=== PATIENT | female | born 1975 | race Caucasian/White ===

== ENCOUNTER 2022-12-25 00:03 | Emergency (ER) | payer BC ==
--- OUTSIDE RECORDS SUMMARY | 2022-12-25 00:06 | XMS REPORT | Continuity of Care Document ---
:1975 Author Organization [facility] t Address [address] [place] [address] Care Team Providers Name Role Phone Brennon AMAYA, Trevor Owens Primary Care Physician [phone] Problems This patient has no known problems. Allergies, Adverse Reactions, Alerts This patient has no known allergies or adverse reactions. Social History Social Habit Start Date Stop Date Quantity Comments Source Gender identity [facility] Sexual orientation Method [facility] Sex Assigned At [birth year] [facility] 00:00:00 00:00:00 Smoking Status Start Date Stop Date Source Tobacco smoking consumption unknown [facility] Medications Ordered Filled Start Stop Current Ordering Indication Dosage Frequency Signature Comments Components Source Medication Medication Date Date Medication? Clinician (SIG) Name Name hydrALAZINE Yes hydralazin Methodi (APRESOLINE 02-[address] ) 50 MG 12:34: tablet Hospita tablet 01 l levothyroxi Yes levothyrox Method[facility] ne [address] (SYNTHROID, 12:34: tablet Hosp flora LEVOTHROID) 01 l 88 MCG tablet liothyronin Yes liothyroni Methodi e (CYTOMEL) 02-[address] 5 MCG 12:34: tablet Hospita tablet 01 l lisinopril Yes lisinopril M ethodi (PRINIVIL,Z 8-[address] ESTRIL) 20 12:34: tablet Hospi ta MG tablet 01 l OMEPRAZOLE Yes 40mg 40 mg. Metho di ORAL 8-17 st 12:34: Hospita 01 l aspirin 325 Yes 81 mg 1 po Methodi MG tablet 8-[address] 12:34: Hospita 01 l atorvastati Yes atorvastat Methodi n (LIPITOR) 02-[address] 10 MG 12:34: tablet Hospita tablet 01 l carvedilol Yes 12.5mg 12.5 mg. M ethodi (COREG) 8 st 12.5 MG 12:34: Hospita tablet 01 l citalopram Yes citalopram M ethodi (CeleXA) 10 02-[address] MG tablet 12:34: tablet Hospit a 01 l Procedures This patient has no known procedures. Plan of Care Planned Activity Planned Date Details Comments Source Future Scheduled 2022-12-25 Screening for [facility] Test 00:05:37 malignant neoplasm of colon (procedure) [code = 014080384] Future Scheduled 2022-12-25 Screening for [facility] Test 00:05:37 malignant neoplasm of colon (procedure) [code = 432670769] Future Scheduled 2022-12-25 Screening for [facility] Test 00:05:37 malignant neoplasm of colon (procedure) [code = 402957634] Future Scheduled 2022-12-25 [facility] 00:05:37 (#1) [code = COVID-19 VACCINE (#1)] Future Scheduled 2022-12-25 Screening for [facility] Test 00:05:37 malignant neoplasm of cervix (procedure) [code = 418845394] Future Scheduled 2022-12-25 BREAST CANCER [facility] Test 00:05:37 SCREENING [code = BREAST CANCER SCREENING] Future Scheduled 2022-12-25 Screening for [facility] Test 00:05:37 malignant neoplasm of colon (procedure) [code = 092009928] Future Scheduled 2022-12-25 Screening for [facility] Test 00:05:37 malignant neoplasm of colon (procedure) [code = 177942604] Future Scheduled 2022-12-25 INFLUENZA VACCINE [facility] Test 00:05:37 [code = INFLUENZA VACCINE] Results This patient has no known results.
--- NOTE | 2022-12-25 01:39 | ER ---
Nurse's Notes [facility] Name: Wendy Albright Age: 47 yrs Sex: Female : 1975 Arrival Date: 12/25/2022 Time: 00:03 Bed 11 Private MD: Diagnosis: Comminuted minimally displaced close fracture right radius and ulna Presentation: 12/25 00:17 Chief complaint: Patient states: right wrist pain of 9,onset 1 hours ago, S/P fall, pf1 tripped while getting out of bed, tried to catch self and landed onto right wrist on the floor. Patient denies any head injury. Coronavirus screen: Vaccine status: Patient reports being unvaccinated. Client denies travel out of the [place] in the last 14 days. At this time, the client does not indicate any symptoms associated with coronavirus-19. Ebola Screen: Patient negative for fever greater than or equal to 101.5 degrees Fahrenheit, and additional compatible Ebola Virus Disease symptoms. Initial Sepsis Screen: Does the patient meet any 2 criteria? No. Patient's initial sepsis screen is negative. Does the patient have a suspected source of infection? No. Patient's initial sepsis screen is negative. Risk Assessment: Do you want to hurt yourself or someone else? Patient reports no desire to harm self or others. 00:17 Method Of Arrival: Ambulatory pf1 00:17 Acuity: JENNIFER 3 pf1 Historical: - Allergies: 00:19 No Known Allergies; pf1 - PMHx: 00:19 Hypertensive disorder; Hypothyroidism; Hypercholesterolemia; depression; neuropathy; pf1 GERD; overactive bladder; - PSHx: 00:19 aortic valve repair; aortic repair; pf1 - Immunization history:: Adult Immunizations up to date, Client reports having NOT received the Covid vaccine. Last tetanus immunization: < 10 years ago Flu vaccine is not up to date. - Social history:: Smoking status: Patient denies any tobacco usage or history of. Patient uses alcohol, occasionally. Patient/guardian denies using street drugs. Screenin:20 [facility] ED Fall Risk Assessment (Adult) History of falling in the last 3 months, pf1 including since admission Yes- single mechanical fall (1 pt) Confusion or Disorientation No (0 pts) Intoxicated or Sedated No (0 pts) Impaired Gait No (0 pts) Mobility Assist Device Used No (0 pt) Altered Elimination No (0 pt) Score/Fall Risk Level 0 - 2 = Low Risk Oriented to surroundings, Maintained a safe environment, Educated pt \T\ family on fall prevention, incl call for assistance when getting out of bed, Assessed \T\ reinforced patient's understanding of fall precautions, Provided non-skid footwear, Hourly rounding (assess needs \T\ fall precautionary measures) done, Used ambulatory aids as needed (educated on \T\ assisted with), Used gait belt as appropriate. 00:20 Abuse screen: Denies threats or abuse. Nutritional screening: No deficits noted. pf1 Tuberculosis screening: No symptoms or risk factors identified. Assessment: 00:20 General: Appears in no apparent distress. uncomfortable, obese, well groomed, well pf1 developed, Behavior is calm, cooperative, appropriate for age, quiet. 00:20 Pain: Complains of pain in right arm and right wrist. Neuro: Level of Consciousness is pf1 awake, alert, obeys commands, Oriented to person, place, time, situation. Cardiovascular: No deficits noted. Capillary refill < 3 seconds Patient's skin is warm and dry. Respiratory: No deficits noted. Airway is patent Respiratory effort is even, unlabored, Respiratory pattern is regular, symmetrical. GI: No deficits noted. No signs and/or symptoms were reported involving the gastrointestinal system. : No deficits noted. No signs and/or symptoms were reported regarding the genitourinary system. EENT: No deficits noted. No signs and/or symptoms were reported regarding the EENT system. Derm: No deficits noted. No signs and/or symptoms reported regarding the dermatologic system. Musculoskeletal: Reports pain in right wrist and right arm. 01:20 Reassessment: Patient appears in no apparent distress at this time. Patient and/or pf1 family updated on plan of care and expected duration. Pain level reassessed. Patient is alert, oriented x 3, equal unlabored respirations, skin warm/dry/pink. Vital Signs: 00:17 BP 132 / 77; Pulse 63; Resp 18; Temp 98.2; Pulse Ox 97% on R/A; Weight 136.08 kg; pf1 Height 5 ft. 7 in. ; Pain 9/10; 01:20 BP 130 / 68; Pulse 69; Resp 16; Pulse Ox 99% on R/A; Pain 4/10; pf1 00:17 Body Mass Index 46.99 (136.08 kg, 170.18 cm) pf1 00:17 Pain Scale: Adult pf1 01:20 Pain Scale: Adult pf1 ED Course: 00:06 Patient arrived in ED. ja2 00:11 Randy Iraheta MD is Attending Physician. kdr 00:19 Triage completed. pf1 00:20 Patient has correct armband on for positive identification. Bed in low position. Call pf1 light in reach. 00:20 Arm band placed on left wrist. pf1 00:30 No provider procedures requiring assistance completed. pf1 00:30 Patient did not have IV access during this emergency room visit. pf1 01:25 Wrist Right 3 View XRAY In Process Unspecified. EDMS 01:40 Orthoglass splint: Sugar tong splint applied on right arm. Sling \T\ swathe to right arm. pf1 Administered Medications: No medications were administered Medication: 00:20 VIS not applicable for this client. pf1 Outcome: 01:39 Discharge ordered by . kdr 02:00 Discharged to home ambulatory, with family. pf1 02:00 Condition: improved 02:00 Discharge instructions given to patient, Instructed on discharge instructions, follow up and referral plans. Demonstrated understanding of instructions, follow-up care. 02:00 Patient left the ED. pf1 Signatures: Dispatcher [employer] EDMS Randy Iraheta MD MD kdr Alexander, Jessica ja2 Finley, Pamala, RN RN pf1 Corrections: (The following items were deleted from the chart) 00:27 00:19 Allergies: No Known Allergies; pf1 pf1 : 00:19 PMHx: Hypertensive disorder; pf1 pf1 : 00:19 PMHx: Hypothyroidism; pf1 pf1 : 00:19 PMHx: neuropathy; pf1 pf1 00:19 PMHx: Cerebrovascular accident; pf1 pf1 00:19 PMHx: overactive bladder; pf1 pf1 00:19 PMHx: depression; pf1 pf1 : 00:19 PMHx: Hypercholesterolemia; pf1 pf1 00:19 PMHx: GERD; pf1 pf1 : 00:19 PSHx: aortic disection repair; pf1 pf1 00:27 00:19 PSHx: aortic valve repair; pf1 pf1 07:55 03:03 Patient left the ED. pf1 pf1
--- NOTE | 2022-12-25 01:39 | EDPHYS ---
Physician Documentation [facility] Name: Wendy Albirght Age: 47 yrs Sex: Female : 1975 Arrival Date: 12/25/2022 Time: 00:03 Bed 11 Private MD: ED Physician Randy Iraheta HPI: 12/25 03:14 This 47 yrs old Female presents to ER via Ambulatory with complaints of Fall Injury, kdr Wrist Injury. 03:14 Patient states that she fell prior to arrival. She states she fell on her right side kdr with her wrist flexed and hit the ground. She now has pain in the distal right radius area patient has had a prior stroke and has minimal movement of the lower forearm on that side. Patient has no other injuries and no other concerns at this time. Onset: The symptoms/episode began/occurred just prior to arrival. Severity of symptoms: At their worst the symptoms were mild moderate just prior to arrival, in the emergency department the symptoms are unchanged. The patient has not experienced similar symptoms in the past. The patient has not recently seen a physician. Historical: - Allergies: 00:19 No Known Allergies; pf1 - PMHx: 00:19 Hypertensive disorder; Hypothyroidism; Hypercholesterolemia; depression; neuropathy; pf1 GERD; overactive bladder; - PSHx: 00:19 aortic valve repair; aortic repair; pf1 - Immunization history:: Adult Immunizations up to date, Client reports having NOT received the Covid vaccine. Last tetanus immunization: < 10 years ago Flu vaccine is not up to date. - Social history:: Smoking status: Patient denies any tobacco usage or history of. Patient uses alcohol, occasionally. Patient/guardian denies using street drugs. ROS: 03:14 Constitutional: Negative for fever, chills, and weight loss, Eyes: Negative for injury, kdr pain, redness, and discharge, Neck: Negative for injury, pain, and swelling, Cardiovascular: Negative for chest pain, palpitations, and edema, Respiratory: Negative for shortness of breath, cough, wheezing, and pleuritic chest pain, Abdomen/GI: Negative for abdominal pain, nausea, vomiting, diarrhea, and constipation, Back: Negative for injury and pain, : Negative for injury, bleeding, discharge, and swelling, Skin: Negative for injury, rash, and discoloration, Neuro: Negative for headache, weakness, numbness, tingling, and seizure activity. Psych: Negative for depression, anxiety, suicide ideation, homicidal ideation, and hallucinations, Allergy/Immunology: Negative for hives, rash, and allergies, Endocrine: Negative for neck swelling, polydipsia, polyuria, polyphagia, and marked weight changes, Hematologic/Lymphatic: Negative for swollen nodes, abnormal bleeding, and unusual bruising. 03:14 MS/extremity: Positive for injury or acute deformity, decreased range of motion, Negative for Exam: 03:14 Constitutional: This is a well developed, well nourished patient who is awake, alert, kdr and in no acute distress. Head/Face: Normocephalic, atraumatic. 03:14 Musculoskeletal/extremity: Extremities: grossly normal except: noted in the right wrist: decreased ROM, pain. Vital Signs: 00:17 BP 132 / 77; Pulse 63; Resp 18; Temp 98.2; Pulse Ox 97% on R/A; Weight 136.08 kg; pf1 Height 5 ft. 7 in. ; Pain 9/10; 01:20 BP 130 / 68; Pulse 69; Resp 16; Pulse Ox 99% on R/A; Pain 4/10; pf1 00:17 Body Mass Index 46.99 (136.08 kg, 170.18 cm) pf1 00:17 Pain Scale: Adult pf1 01:20 Pain Scale: Adult pf1 MDM: 01:39 Patient medically screened. kdr 03:17 Data reviewed: vital signs, nurses notes, radiologic studies. kdr 12/25 00:53 Order name: Wrist Right 3 View XRAY kdr 12/25 01:35 Order name: Sugar Tong Forearm Splint; Complete Time: 02:06 kdr Administered Medications: No medications were administered Disposition Summary: 12/25/22 01:39 Discharge Ordered Location: Home kdr Problem: new kdr Symptoms: have improved kdr Condition: Fair kdr Diagnosis - Comminuted minimally displaced close fracture right radius and ulna kdr Followup: kdr - With: Private Physician - When: 2 - 3 days - Reason: If symptoms return, Further diagnostic work-up, Recheck today's complaints, Continuance of care, Re-evaluation by your physician Discharge Instructions: - Discharge Summary Sheet kdr - Radial Fracture kdr - Ulnar Fracture kdr Forms: - Medication Reconciliation Form kdr - Thank You Letter kdr - [email or web address] kdr Signatures: Dispatcher [employer] Randy Warren MD MD kdr Finley, Pamala, RN RN pf1 Corrections: (The following items were deleted from the chart) 00: 00:19 Allergies: No Known Allergies; pf1 pf1 : 00:19 PMHx: Hypertensive disorder; pf1 pf1 : 00:19 PMHx: Hypothyroidism; pf1 pf1 00:19 PMHx: neuropathy; pf1 pf1 : 00:19 PMHx: Cerebrovascular accident; pf1 pf1 : 00:19 PMHx: overactive bladder; pf1 pf1 : 00:19 PMHx: depression; pf1 pf1 : 00:19 PMHx: Hypercholesterolemia; pf1 pf1 : 00:19 PMHx: GERD; pf1 pf1 : 00:19 PSHx: aortic disection repair; pf1 pf1 : 00:19 PSHx: aortic valve repair; pf1 pf1
[2022-12-25 03:07] VITALS: BP 132/77; TEMP 98.2; O2SAT 97
--- NOTE | 2022-12-26 19:30 | RAD REPORT ---
EXAM DESCRIPTION: RAD - Wrist Right 3 View - 12/25/2022 1:23 am Wrist Right 3 View CLINICAL HISTORY: Deformity;Pain Wrist Right 3 View TECHNIQUE: Three views of the right wrist are submitted. COMPARISON: None available for comparison FINDINGS: Comminuted fracture of the distal radius with mild dorsal displacement of distal fragments . Fracture of the distal ulna and avulsion of the ulnar styloid process. Carpal bones are intact. IMPRESSION: Fractures of the distal radius and ulna with avulsion of the ulnar styloid process. Electronically signed by: Julio Yun MD 12/25/2022 1:52 AM CDT Due to temporary technical issues with the PACS/Fluency reporting system, reports are being signed by the in house radiologists without review as a courtesy to insure prompt reporting. The interpreting radiologist is fully responsible for the content of the report.
== END 2022-12-25 03:03 | disposition home or self-care (01) ==
LOC: ER 00:03
PROC: 2W3CX1Z Immobilization of Right Lower Arm using Splint (ICD-10-PCS; principal; 2022-12-25)
DX: S52.251A Displaced comminuted fracture of shaft of ulna, right arm, initial encounter for closed fracture (principal); S52.501A Unspecified fracture of the lower end of right radius, initial encounter for closed fracture; W06.XXXA Fall from bed, initial encounter
CPT/HCPCS: 99283

== ENCOUNTER 2023-03-28 09:10 | Emergency (ER) | payer BC ==
--- OUTSIDE RECORDS SUMMARY | 2023-03-28 09:14 | XMS REPORT | Continuity of Care Document ---
:1975 Author Organization [facility] t Address [address] [place] [address] Care Team Providers Name Role Phone Brennon AMAYA, Trevor Owens Primary Care Physician [phone]- [phone] Problems This patient has no known problems. Allergies, Adverse Reactions, Alerts This patient has no known allergies or adverse reactions. Social History Social Habit Start Date Stop Date Quantity Comments Source Gender identity [facility] Sexual orientation Method [facility] Sex Assigned At [birth year] Met [facility] 00:00:00 00:00:00 Smoking Status Start Date Stop Date Source Tobacco smoking consumption unknown [facility] Medications Ordered Filled Start Stop Current Ordering Indication Dosage Frequency Signature Comments Components Source Medication Medication Date Date Medication? Clinician (SIG) Name Name hydrALAZINE Yes hydralazin [facility] (APRESOLINE -[address] ) 50 MG 12:34: tablet Hospita tablet 01 l levothyroxi Yes levothyrox Method[facility] ne 8-[address] (SYNTHROID, 12:34: tablet Hosp flora LEVOTHROID) 01 l 88 MCG tablet liothyronin Yes liothyroni Methodi e (CYTOMEL) 8-[address] 5 MCG 12:34: tablet Hospita tablet 01 l levothyroxi Yes levothyrox Methodi ne 8-[address] (SYNTHROID, 12:34: tablet Hosp flora LEVOTHROID) 01 l 88 MCG tablet liothyronin 2016-0 Yes liothyroni Methodi e (CYTOMEL) 02-[address] 5 MCG 12:34: tablet Hospita tablet 01 l lisinopril Yes lisinopril M ethodi (PRINIVIL,Z 8-[address] ESTRIL) 20 12:34: tablet Hospi ta MG tablet 01 l OMEPRAZOLE 0 Yes 40mg 40 mg. Metho di ORAL 02-01 st 12:34: Hospita 01 l lisinopril Yes lisinopril M ethodi (PRINIVIL,Z 8-[address] ESTRIL) 20 12:34: tablet Hospi ta MG tablet 01 l aspirin 325 Yes 81 mg 1 po Methodi MG tablet - qd st 12:34: Hospita 01 l atorvastati Yes atorvastat Methodi n (LIPITOR) [address] 10 MG 12:34: tablet Hospita tablet l carvedilol Yes 12.5mg 12.5 mg. M ethodi (COREG) 02-01 st 12.5 MG 12:34: Hospita tablet l citalopram 0 Yes citalopram M ethodi (CeleXA) 10 - [address] MG tablet 12:34: tablet Hospit a 01 l hydrALAZINE Yes hydralazin Methodi (APRESOLINE 02-[address] ) 50 MG 12:34: tablet Hospita tablet l OMEPRAZOLE 0 Yes 40mg 40 mg. Metho di ORAL 02-01 st 12:34: Hospita 01 l aspirin 325 2015-0 Yes 81 mg 1 po Methodi MG tablet -[address] 12:34: Hospita 01 l atorvastati 0 Yes atorvastat Methodi n (LIPITOR) 8- in [address] 10 MG 12:34: tablet Hospita tablet 01 l carvedilol 2015-0 Yes 12.5mg 12.5 mg. M ethodi (COREG) 817 st 12.5 MG 12:34: Hospita tablet 01 l citalopram 2015-0 Yes citalopram M ethodi (CeleXA) 10 8-[address] MG tablet 12:34: tablet Hospit a 01 l Procedures This patient has no known procedures. Plan of Care Planned Activity Planned Date Details Comments Source Future Scheduled 2023-03-28 Screening for [facility] Test 09:14:06 malignant neoplasm of colon (procedure) [code = 233323491] Future Scheduled 2023-03-28 Screening for [facility] Test 09:14:06 malignant neoplasm of colon (procedure) [code = 288374886] Future Scheduled 2023-03-28 Screening for [facility] Test 09:14:06 malignant neoplasm of colon (procedure) [code = 560422500] Future Scheduled 2023-03-28 [facility] 09:14:06 (#1) [code = COVID-19 VACCINE (#1)] Future Scheduled 2023-03-28 Screening for [facility] Test 09:14:06 malignant neoplasm of cervix (procedure) [code = 669500199] Future Scheduled 2023-03-28 BREAST CANCER [facility] Test 09:14:06 SCREENING [code = BREAST CANCER SCREENING] Future Scheduled 2023-03-28 Screening for [facility] Test 09:14:06 malignant neoplasm of colon (procedure) [code = 182959973] Future Scheduled 2023-03-28 Screening for [facility] Test 09:14:06 malignant neoplasm of colon (procedure) [code = 611957695] Future Scheduled 2023-03-28 [facility] 09:14:06 (#1) [code = INFLUENZA VACCINE (#1)] Future Scheduled 2022-12-25 Screening for [facility] Test 00:05:37 malignant neoplasm of colon (procedure) [code = 148454129] Future Scheduled 2022-12-25 Screening for [facility] Test 00:05:37 malignant neoplasm of colon (procedure) [code = 733293331] Future Scheduled 2022-12-25 Screening for [facility] Test 00:05:37 malignant neoplasm of colon (procedure) [code = 385845916] Future Scheduled 2022-12-25 COVID-[address] [facility] Test 00:05:37 (#1) [code = COVID-19 VACCINE (#1)] Future Scheduled 2022-12-25 Screening for [facility] Test 00:05:37 malignant neoplasm of cervix (procedure) [code = 214244416] Future Scheduled 2022-12-25 BREAST CANCER [facility] Test 00:05:37 SCREENING [code = BREAST CANCER SCREENING] Future Scheduled 2022-12-25 Screening for [facility] Test 00:05:37 malignant neoplasm of colon (procedure) [code = 829810586] Future Scheduled 2022-12-25 Screening for [facility] Test 00:05:37 malignant neoplasm of colon (procedure) [code = 793621266] Future Scheduled 2022-12-25 [facility]ACCINE [facility] 00:05:37 [code = INFLUENZA VACCINE] Results This patient has no known results.
[2023-03-28 10:14] LABS: Potassium 2.8 mEq/L (3.5-5.1)
[2023-03-28] MEDS ORDERED: POTASSIUM 25 MEQ EFFERV TAB ONE (10:32)
[2023-03-28] MEDS ORDERED: KCL 20 MEQ/100 mL IVPB 100 ML IV ONE (10:33)
[2023-03-28] MEDS ORDERED: NA CHLORIDE 0.9% 500 ML ONE (10:49)
--- NOTE | 2023-03-28 12:20 | ER ---
Nurse's Notes [facility] Name: Wendy Alb[facility] Age: 47 yrs Sex: Female : 1975 Arrival Date: 03/28/2023 Time: 09:10 Bed 13 Private MD: Diagnosis: Hypokalemia Presentation: 03/28 09:20 Chief complaint: Patient states: Blood drawn yesterday shown K+ 2.8. Coronavirus ll1 screen: Client denies travel out of the [place] in the last 14 days. At this time, the client does not indicate any symptoms associated with coronavirus-19. Ebola Screen: Patient denies travel to an Ebola-affected area in the 21 days before illness onset. Initial Sepsis Screen: Does the patient meet any 2 criteria? No. Patient's initial sepsis screen is negative. Does the patient have a suspected source of infection? No. Patient's initial sepsis screen is negative. Risk Assessment: Do you want to hurt yourself or someone else? Patient reports no desire to harm self or others. Onset of symptoms was March 27, 2023. 09:20 Method Of Arrival: Ambulatory ll1 09:20 Acuity: JENNIFER 4 ll1 Historical: - Allergies: 09:14 No Known Drug Allergies; ll1 - PMHx: 09:14 Depression; GERD; Hypercholesterolemia; Hypertensive disorder; Hypothyroidism; ll1 neuropathy; overactive bladder; - PSHx: 09:14 Aortic Repair; aortic valve repair; ll1 - Immunization history:: Adult Immunizations up to date. - Social history:: Smoking status: Patient denies any tobacco usage or history of. Screenin:43 [facility] ED Fall Risk Assessment (Adult) History of falling in the last 3 months, db including since admission No falls in past 3 months (0 pts) Confusion or Disorientation No (0 pts) Intoxicated or Sedated No (0 pts) Impaired Gait No (0 pts) Mobility Assist Device Used No (0 pt) Altered Elimination No (0 pt) Score/Fall Risk Level 0 - 2 = Low Risk Oriented to surroundings, Maintained a safe environment. Abuse screen: Denies threats or abuse. Denies injuries from another. Nutritional screening: No deficits noted. Tuberculosis screening: No symptoms or risk factors identified. Assessment: 10:43 Reassessment: Patient appears in no apparent distress at this time. Patient and/or db family updated on plan of care and expected duration. Pain level reassessed. Patient is alert, oriented x 3, equal unlabored respirations, skin warm/dry/pink. General: Appears in no apparent distress. comfortable, Behavior is calm, cooperative. Pain: Denies pain. Neuro: Level of Consciousness is awake, alert, obeys commands, Oriented to person, place, time, situation. 12:43 Reassessment: Patient appears in no apparent distress at this time. Patient and/or db family updated on plan of care and expected duration. Pain level reassessed. Patient is alert, oriented x 3, equal unlabored respirations, skin warm/dry/pink. Vital Signs: 09:20 BP 114 / 52; Pulse 70; Resp 16; Temp 98.1; Pulse Ox 99% ; Weight 140.61 kg; Height 5 ll1 ft. 7 in. ; Pain 0/10; 09:47 BP 108 / 59; Pulse 62; Resp 16; Pulse Ox 98% on R/A; db 11:00 BP 114 / 52; Pulse 69; Resp 16; Pulse Ox 98% on R/A; db 12:00 BP 101 / 51; Pulse 65; Resp 16; Pulse Ox 100% on R/A; db 09:20 Body Mass Index 48.55 (140.61 kg, 170.18 cm) ll1 09:20 Pain Scale: Adult ll1 ED Course: 09:13 Patient arrived in ED. mr 09:14 Arm band placed on Patient placed in an exam room, on a stretcher. ll1 09:16 Lorraine Pulido PA-C is PHCP. sb4 09:16 Rah Sanchez DO is Attending Physician. sb4 09:16 Liliana Hernandez, RN is Primary Nurse. db 09:21 Triage completed. ll1 09:45 Missed attempt(s): 22 gauge in left antecubital area. Bleeding controlled, band aid db applied, catheter tip intact. 09:52 Inserted saline lock: 22 gauge in right antecubital area, using aseptic technique. db Blood collected. 10:43 Patient has correct armband on for positive identification. Bed in low position. Call db light in reach. Side rails up X 1. Client placed on continuous cardiac and pulse oximetry monitoring. NIBP monitoring applied. 12:35 Provided Education on: DISCHARGE. db 12:35 No provider procedures requiring assistance completed. IV discontinued, intact, db bleeding controlled, No redness/swelling at site. Administered Medications: 10:29 Drug: Potassium Chloride IV 20 mEq IV at calculated rate once; administer over 1-2 db hours Route: IV; Rate: calculated rate; Site: right antecubital; 12:40 Follow up: Response: No adverse reaction; IV Status: Completed infusion; IV Intake: db 100ml 10:29 Drug: Potassium PO Effervescent Tablet 50 mEq PO once; dissolve in 4 ounces of water or db juice Route: PO; 12:40 Follow up: Response: No adverse reaction db 10:37 Drug: NS 0.9% IV 500 ml IV at bolus once Route: IV; Rate: bolus; Site: right db antecubital; 12:40 Follow up: Response: No adverse reaction; IV Status: Completed infusion; IV Intake: db 500ml Medication: 10:43 VIS not applicable for this client. db Intake: 12:40 IV: 500ml; Total: 500ml. db 12:40 IV: 100ml; Total: 600ml. db Outcome: 12:20 Discharge ordered by . sb4 12:40 Discharged to home ambulatory, db 12:40 Condition: stable 12:40 Discharge instructions given to patient, Instructed on discharge instructions, follow up and referral plans. Prescriptions given X 1, 12:46 Patient left the ED. db Signatures: Sandra Decker, Harshad Patricia mr Noemí Meier, RN RN ll1 Liliana Hernandez, YAYA RN db Lorraine Pulido, PAFaustinoC PAEd sb4
--- NOTE | 2023-03-28 12:20 | EDPHYS ---
Physician Documentation [facility] Name: Wendy Albright Age: 47 yrs Sex: Female : 1975 Arrival Date: 03/28/2023 Time: 09:10 Bed 13 Private MD: ED Physician Rah Sanchez HPI: 03/28 09:38 This 47 yrs old Female presents to ER via Ambulatory with complaints of Abnormal Lab sb4 Results. 09:38 Patient states that she had routine labs drawn on Sunday. PCP called with results of sb4 low potassium and had her do a recollect to ensure it was accurate. They are recollected on Sunday and she was called with the result this morning. She was told her potassium is 2.8. She is on Lasix. She denies any history of hypokalemia. She denies any recent nausea or vomiting. She is asymptomatic. No chest pain, no muscle cramps, no fatigue, shortness of breath. Historical: - Allergies: 09:14 No Known Drug Allergies; ll1 - PMHx: 09:14 Depression; GERD; Hypercholesterolemia; Hypertensive disorder; Hypothyroidism; ll1 neuropathy; overactive bladder; - PSHx: 09:14 Aortic Repair; aortic valve repair; ll1 - Immunization history:: Adult Immunizations up to date. - Social history:: Smoking status: Patient denies any tobacco usage or history of. ROS: 09:38 Constitutional: Negative for fever, chills, and weight loss, sb4 09:38 All other systems are negative, Exam: 09:38 Constitutional: This is a well developed, well nourished patient who is awake, alert, sb4 and in no acute distress. Head/Face: Normocephalic, atraumatic. Eyes: Extra-ocular motions intact. Periorbital areas with no swelling, redness, or edema. ENT: Mucous membranes moist. Cardiovascular: Regular rate and rhythm with a normal S1 and S2. Respiratory: Lungs have equal breath sounds bilaterally, clear to auscultation and percussion. No rales, rhonchi or wheezes noted. No increased work of breathing, no retractions or nasal flaring. Abdomen/GI: Soft, non-tender, no distension. Skin: Warm, dry with normal turgor. Normal color with no rashes, no lesions, and no evidence of cellulitis. MS/ Extremity: Pulses equal, no cyanosis. Neurovascular intact. Full, normal range of motion. Neuro: Awake and alert, GCS 15, oriented to person, place, time, and situation. Motor strength 5/5 in all extremities. Sensory grossly intact. 10:03 ECG was reviewed by the Attending Physician. sb4 Vital Signs: 09:20 BP 114 / 52; Pulse 70; Resp 16; Temp 98.1; Pulse Ox 99% ; Weight 140.61 kg; Height 5 ll1 ft. 7 in. ; Pain 0/10; 09:47 BP 108 / 59; Pulse 62; Resp 16; Pulse Ox 98% on R/A; db 11:00 BP 114 / 52; Pulse 69; Resp 16; Pulse Ox 98% on R/A; db 12:00 BP 101 / 51; Pulse 65; Resp 16; Pulse Ox 100% on R/A; db 09:20 Body Mass Index 48.55 (140.61 kg, 170.18 cm) ll1 09:20 Pain Scale: Adult ll1 MDM: 09:16 Patient medically screened. sb4 11:07 Data reviewed: vital signs, nurses notes, lab test result(s), EKG, and as a result, I sb4 will discharge patient. Care significantly affected by the following chronic conditions: Hypertension. Counseling: I had a detailed discussion with the patient and/or guardian regarding the historical points, exam findings, and any diagnostic results supporting the discharge/admit diagnosis, lab results, the need for outpatient follow up, with PCP next week for lab redraw. 03/28 09:20 Order name: BMP; Complete Time: 10:16 sb4 03/28 09:20 Order name: EKG Strip; Complete Time: 10:06 sb4 03/28 09:20 Order name: IV Start; Complete Time: :18 sb4 03/28 09:20 Order name: Cardiac monitoring; Complete Time: : sb4 EC:03 Rate is 61 beats/min. Rhythm is regular, Normal Sinus Rhythm. NC interval is normal at sb4 176 msec. QRS interval is normal at 92 msec. QT interval is normal at 434 msec. T waves are Flattened. Clinical impression: Suggests hypokalemia and No evidence of ischemia. Interpreted by me. Reviewed by me. Administered Medications: 10:29 Drug: Potassium Chloride IV 20 mEq IV at calculated rate once; administer over 1-2 db hours Route: IV; Rate: calculated rate; Site: right antecubital; 12:40 Follow up: Response: No adverse reaction; IV Status: Completed infusion; IV Intake: db 100ml 10:29 Drug: Potassium PO Effervescent Tablet 50 mEq PO once; dissolve in 4 ounces of water or db juice Route: PO; 12:40 Follow up: Response: No adverse reaction db 10:37 Drug: NS 0.9% IV 500 ml IV at bolus once Route: IV; Rate: bolus; Site: right db antecubital; 12:40 Follow up: Response: No adverse reaction; IV Status: Completed infusion; IV Intake: db 500ml Disposition: 09:41 I was immediately available on-site in the Emergency Department for consultation in the ms3 care of the patient. Disposition Summary: 03/28/23 12:20 Discharge Ordered Notes: Location: Home sb4 Problem: new sb4 Symptoms: have improved sb4 Condition: Stable sb4 Diagnosis - Hypokalemia sb4 Followup: sb4 - With: Emergency Department - When: As needed - Reason: Trouble breathing, Worsening of condition Discharge Instructions: - Discharge Summary Sheet sb4 - Potassium Content of Foods sb4 - Hypokalemia sb4 Forms: - Medication Reconciliation Form sb4 - Thank You Letter sb4 - Antibiotic Education sb4 - Prescription Opioid Use sb4 - Patient Portal Instructions sb4 - Leadership Thank You Letter sb4 Prescriptions: - Potassium Chloride 10 mEq Oral capsule, extended release - take 2 tablets ORAL route every 12 hours for 7 days; 28 tablet; Refills: 0, sb4 Product Selection Permitted Signatures: Dispatcher [employer] EDMS Noemí Meier, RN RN ll1 Rah Sanchez DO DO ms3 Liliana Hernandez RN RN Lorraine Johnson PAEd PAEd sb4 Corrections: (The following items were deleted from the chart) 16:44 09:41 I was immediately available on-site in the Emergency Department for consultation ms3 in the care of the patient. ms3 16:55 09:41 I was immediately available on-site in the Emergency Department for consultation ms3 in the care of the patient. ms3
[2023-03-28 13:11] VITALS: TEMP 98.1
[2023-03-28 13:14] VITALS: BP 101/51; O2SAT 100
--- NOTE | 2023-03-29 12:30 | EKG ---
Test Date: 2023-03-28 Test Time: 10:00:00 System Validation Engineer: LOVE MEASUREMENT RESULTS: Intervals: Rate: 61 AK: 176 QRSD: 92 QT: 434 QTc: 436 [place]: P: 45 AK: 176 QRS: 56 T: 195 INTERPRETIVE STATEMENTS: Normal sinus rhythm ST & T wave abnormality, consider inferior ischemia ST & T wave abnormality, consider anterolateral ischemia Abnormal ECG Compared to ECG 06/04/2014 00:21:48 ST (T wave) deviation now present Possible ischemia now present Electronically Signed On 03-29-23 12:28:07 CDT by Giovani Zendejas
== END 2023-03-28 12:46 | disposition home or self-care (01) ==
LOC: ER 09:10
DX: E87.6 Hypokalemia (principal); I10 Essential (primary) hypertension
CPT/HCPCS: 80048; 36415; J3480; J7040; 93005